=== PATIENT | female | born 1985 | race African-American/Black ===

== ENCOUNTER 2016-09-20 17:06 | Emergency (ER) ==
[2016-09-20 17:16] VITALS: BP 120/073
[2016-09-20] MEDS ORDERED: NORFLEX IM ONE (18:01)
[2016-09-20] MEDS ORDERED: TORADOL IM ONE (18:01)
--- NOTE | 2016-09-20 18:05 | PROVIDER DOCUMENTATION ---
HPI-Musculoskeletal Pain/Inj - GENERAL Chief Complaint: Neck Pain Stated Complaint: BACK PAIN Time Seen by Provider: 09/20/16 17:55 - HX OF PRESENT ILLNESS-MUSKULOSKELTAL Nature of Presenting Problem: 31 year old AAF presents with c/o left neck pain for 2-3 days, onset upon awakening. pt denies trauma, heavy lifting, twisting, turning. pt reports pain is exacerbate with ROM of neck, any movement worsens pain. pt reports she has tried OTC tylenol and naproxin without relief. Quality of Pain: reports: aching, cramping Severity in ED: mild Onset/Duration: 2 days ago, 3 days ago Timing: still present, constant, getting worse Modifying Factors: improves with: exercise, lying down, massage, movement, palpation, rest Any recent injury?: No Locality of Occurance: Home Similar Symptoms Previously?: No Recently seen or treated by another doctor?: No - BACK & NECK PAIN/INJURY Back/Neck Pain Location: reports: paraspinous muscles (left latyeral) Back/Neck Pain Radiation: denies: headache, Buttocks, Upper Legs, Lower Legs, Feet Context / Method of Injury: reports: unknown. denies: direct blow, fall, lifting, motor vehicle crash, overuse, twisted, prior injury Associated Symptoms: reports: denies symptoms. denies: loss of bladder control , loss of bowel control, fever, lower back pain, muscle spasms, numbness in legs /feet, numbness in upper ext, sensory/motor loss, tingling in legs/feet, tingling in upper ext, weakness in legs/feet, weakness in upper ext History of Chronic Neck or Back Pain?: No Review of Systems - Adult - REVIEW OF SYSTEMS - ADULT Constitutional: reports: no symptoms reported. denies: chills, fever, fatique Eyes: reports: no symptoms reported. denies: discharge, blurred vision, double vision, eye pain Ears, Nose, Mouth & Throat: reports: no symptoms reported. denies: ear discharge, ear pain, nose pain, loose teeth, throat pain, throat swelling Cardiovascular: reports: no symptoms reported. denies: chest pain, palpitations , syncope Respiratory: reports: no symptoms reported. denies: chronic cough, cough, shortness of breath, wheezing Gastrointestinal: reports: no symptoms reported. denies: abdominal pain, diarrhea, nausea, vomiting Genitourinary: reports: no symptoms reported. denies: dysuria, hematuria, urgency Musculoskeletal: reports: see HPI, muscle aches, neck pain (left lateral neck tenderness). denies: bone pain, back pain, frequent leg cramps, joint pain, joint swelling, muscle weakness Integumentary: reports: no symptoms reported. denies: hives, mole changes, nail changes Neurological: reports: no symptoms reported. denies: ataxia, dizziness/vertigo , headache/migraines, numbness, paresthesia, seizure, slurred speech Psychiatric: reports: no symptoms reported Endocrine: reports: no symptoms reported Hematologic/Lymphatic: reports: no symptoms reported Allergic/Immunologic: reports: no symptoms reported All Other Systems: Reviewed and Negative Past History - Adult - PAST MEDICAL HISTORY-ADULT Review of Records: reports: Old Records Reviewed, Nursing Assessment Review, Medications Reviewed, Social history reviewed & non-contributory. Major Childhood Illnesses: reports: denies history Cardiovascular: reports: HTN Respiratory: reports: asthma (childhood) Gastrointestinal: reports: denies history Obstetrical/Gynecological: reports: denies history Genitourinary: reports: denies history Musculoskeletal: reports: denies history Neurological: reports: denies history Endocrine/Immune: reports: denies history Other Conditions: reports: denies history - PRIOR SURGERIES/PROCEDURES Surgical/Procedure History: reports: cholecystectomy - IMMUNIZATION STATUS Childhood Immunizations: See Nurse Assessment Flu Vaccine: See Nurse Assessment - FAMILY HISTORY Family History: reviewed, not pertinent - SOCIAL HISTORY Smoking: cigarettes Provider spent 3-5 mins advising pt. on dangers of tobacco.: Discussed manners to quit use, and f/u contacts for add'l counseling. Substance Use: none presently/history of abuse Alcohol Use Frequency: never Physical Exam-Injury Related - Physical Exam-Injury Related Initial Vital Signs Reviewed: Yes General Appearance: appears well, alert, no apparent distress Eyes: pink conjunctivae Head, Ears, Nose, Mouth & Throat: normocephalic/atraumatic, moist mucous membranes, normal ENT inspection Neck: supple, normal inspection, decresed ROM, limited range of motion, muscle spasm, pain on movement, tender lateral (left lateral neck tenderness). negative: non-tender, full range of motion, Brudzinski's sign, C-spine tenderness, ecchymosis, lymphadenopathy, subcutaneous emphysema, swelling, trachial deviation, tender midline, vertebral point tenderness Respiratory: chest non-tender, lungs clear, normal breath sounds, no pleuratic chest pain, no respiratory distress, no accessory muscle use Cardiovascular: normal peripheral pulses, regular rate, rhythm, no edema, no gallop, no JVD, no murmur Peripheral Pulses: radial (R): 3+, radial (L): 3+ Abdominal Exam: normal bowel sounds, non tender, soft, no organomegaly, no pulsatile mass Female Genitalia/Pelvic Exam: deferred Rectal Exam: deferred Hemoccult Exam: deferred Lymphatic: no adenopathy Back Exam: normal inspection, no CVA tenderness, no vertebral tenderness. negative: CVA tenderness, decreased range of motion, vertebral tenderness Extremity: normal range of motion, non-tender, normal gait, normal inspection, no pedal edema, no calf tenderness, normal capillary refill, pelvis stable. negative: deformity, erythema, inflammation Integumentary: normal color, warm/dry Neurologic: grossly normal, no motor/sensory deficits Psych/Mental Status: AL, normal mood/affect, normal thought content, normal thought process, oriented x 3 - Glascow Coma Score Best Eye Response ([place]): (4) open spontaneously Best Verbal Response ([place]): (5) oriented Best Motor Response ([place]): (6) obeys commands [place] Total: 15 Progress - PLAN OF CARE/RESULTS Progress/Plan/Lab Results: Orders Category Date Time Status Ketorolac [Toradol] Med 09/20/16 18:01 Discontinued 60 mg IM NOW ONE Orphenadrine [Norflex] Med 09/20/16 18:01 Discontinued 60 mg IM NOW ONE Vital Signs - 24 hr 09/20/16 17:12 Temperature 98.9 F Pulse Rate 82 Respiratory 16 Rate Blood Pressure 120/073 O2 Sat by Pulse 100 Oximetry Departure - Departure Time of Disposition Order: 18:02 DIAGNOSIS: Muscle ache, Neck pain Disposition: HOME 01 Certified Medical Emergency: Emergent Condition: Stable Additional Instructions: ED Follow Up Instructions: You have been treated by a care provider in the Emergency Department. These instructions are being provided to you so you can have an understanding of how to care for yourself upon discharge. Upon discharge from the Emergency Department, you are responsible for making arrangements for follow-up care by a physician of your choice. Take all prescribed medications as directed. Return to the Emergency Department immediately for any new or worsening symptoms. You may call the Physician Referral phone number at [phone] to obtain a list of Physicians who are taking new patients. Prescriptions: Orphenadrine [Norflex] 100 mg PO BID #10 tablet Famotidine [Pepcid] 20 mg PO DAILY #20 tablet Ketorolac [Toradol] 10 mg PO Q6H PRN PRN #20 tablet PRN Reason: neck pain Attestation - Physician/ Mid-level Attestation Patient care was provided by Mid-level provider (LAP GRINDER/PA):: Yes Mid-level provider:: Nuria Dhaliwal (\) Mid-level documentation review:: The Mid-level provider documentation, treatment plan and medical decision making was reviewed by the physician who agrees with all treatment and medical decision making by the MLP.
== END 2016-09-20 18:41 | disposition home or self-care (01) ==
LOC: P.ED 17:06
DX: M79.1 Myalgia (principal); M54.2 Cervicalgia; M54.9 Dorsalgia, unspecified; I10 Essential (primary) hypertension; F17.210 Nicotine dependence, cigarettes, uncomplicated; Z79.899 Other long term (current) drug therapy; Z71.6 Tobacco abuse counseling
CPT/HCPCS: 96372; J1885; J2360

== ENCOUNTER 2019-04-03 10:06 | Inpatient (IN) ==
[2019-04-03] MEDS ORDERED: NICODERM PATCH TD PRN (12:49)
[2019-04-03] MEDS ORDERED: MOTRIN PO PRN (12:49)
[2019-04-03] MEDS ORDERED: TYLENOL PO PRN (12:49)
[2019-04-03] MEDS ORDERED: PHENOBARBITAL IV PRN (12:49)
[2019-04-03] MEDS ORDERED: DESYREL PO PRN (12:49)
[2019-04-03] MEDS ORDERED: TUBERSOL ID ONE (12:49)
[2019-04-03] MEDS ORDERED: D5W 1,000 ML IV PRN (12:49)
[2019-04-03] MEDS ORDERED: DULCOLAX PR PRN (12:49)
[2019-04-03] MEDS ORDERED: ZOFRAN IV PRN (12:49)
[2019-04-03] MEDS ORDERED: IMODIUM PO PRN (12:49)
[2019-04-03] MEDS ORDERED: MAALOX PLUS LIQUID PO PRN (12:49)
[2019-04-03 13:41] LABS: URINE SOURCE VOIDED
[2019-04-03 14:02] LABS: UR AMPHETAMINES QUAL NONE DETECTED (NONE DETECT); UR BARBITUATES QUAL NONE DETECTED (NONE DETECT); UR BENZODIAZEPIN QUAL NONE DETECTED (NONE DETECT); UR CANNABINOIDS QUAL NONE DETECTED (NONE DETECT); UR COCAINE QUAL NONE DETECTED (NONE DETECT); UR METHADONE QUAL NONE DETECTED (NONE DETECT); UR METHAMPHETAMINE QUAL NONE DETECTED (NONE DETECT); UR OPIATES QUAL PRESUMPTIVE POSITIVE (NONE DETECT); UR OXYCODONE QUAL PRESUMPTIVE POSITIVE (NONE DETECT); UR PCP QUAL NONE DETECTED (NONE DETECT); UR PROPOXYPHENE QUAL NONE DETECTED (NONE DETECT); UR TCA QUAL NONE DETECTED (NONE DETECT)
[2019-04-03 14:09] LABS: BILIRUBIN URINE NEGATIVE (NEGATIVE); BLOOD URINE 2+ (NEGATIVE); GLUCOSE URINE NEGATIVE (NEGATIVE); KETONE URINE TRACE mg/dL (NEGATIVE); LEUKOCYTES URINE TRACE (NEGATIVE); NITRITE URINE NEGATIVE (NEGATIVE); PH URINE 6.5; PROTEIN URINE TRACE mg/dL (NEGATIVE); SP GRAVITY URINE 1.015; UROBILINOGEN URINE 1 mg/dL
[2019-04-03 14:10] LABS: CLARITY SL. CLOUDY (CLEAR); COLOR YELLOW
[2019-04-03 14:16] LABS: URINE BACTERIA 1+ /HFP; URINE EPITHELIAL CELLS >10 /HPF (<10)
[2019-04-03 14:17] LABS: URINE CAST NONE SEEN /LPF; URINE CRYSTAL URIC ACID PRESENT /HPF; URINE WBC <10 /HPF (<10); URINE YEAST NONE SEEN /HPF
[2019-04-03 14:25] LABS: HEMATOCRIT 39.1 % (37.0-47.0); HEMOGLOBIN 13.1 g/dL (12.0-16.0); MCH 31.2 PG (27-31); MCHC 33.5 g/dL (33-37); MCV 93.1 FL (81-99); MPV 11.7 FL (7.4-10.4); RBC 4.2 XMIL (4.2-5.4); RDW 12.4 % (11.5-14.5); WBC 6.84 X1000 (4.8-10.8)
[2019-04-03 15:22] LABS: INR 0.91; PROTIME 12.7 Seconds (11.0-16.0)
[2019-04-03 15:24] LABS: AMYLASE 100 U/L (20-200); LIPASE 43 U/L (13-60)
[2019-04-03 15:42] LABS: AGAP 9; ALBUMIN 3.9 g/dL (3.5-5.0); ALKALINE PHOSPHATASE 45 U/L (32-104); BUN 10 mg/dL (8-22); CALCIUM 8.5 mg/dL (8.8-10.2); CHLORIDE 106 mmol/L (98-107); COSMO 278; CREATININE 0.4 mg/dL (0.5-0.9); ESTIMATED GFR > 60; GLUCOSE 130 mg/dL (70-104); GOT 14 U/L (10-30); GPT 12 U/L (10-36); POTASSIUM 3.6 mmol/L (3.5-5.1); SODIUM 139 mmol/L (136-145); TCO2 24 mmol/L (25-35); TOTAL BILIRUBIN < 0.15 mg/dL (0.20-1.00); TOTAL PROTEIN 6.8 g/dL (6.3-8.3)
[2019-04-03] MEDS: SUBOXONE 2 MG/0.5 MG FILM SL SCH (16:44)
[2019-04-03] MEDS: BENTYL PO PRN (18:23)
--- NOTE | 2019-04-03 20:28 | HISTORY AND PHYSICAL ---
CHIEF COMPLAINT: Nausea and vomiting. HISTORY OF PRESENT ILLNESS: The patient is a 33-year-old female who presented to [facility] [place] secondary to nausea, vomiting, abdominal pain, myalgias. Notes that she does not want to go back down the same path she has been on in the past. She has a longstanding history of use and abuse and had done well on Suboxone. She has recently been clean. She notes that the of a very close friend is what triggered this episode. SOCIAL HISTORY: Patient is single. She is unemployed. Lives at home in [place]. PAST MEDICAL HISTORY: Hypertension, chronic anxiety, depression, frequent urinary tract infections, asthma as a child. MEDICATIONS: She is on blood pressure medications. ALLERGIES: No known drug allergies. REVIEW OF SYSTEMS: CINA score is 16 secondary to nausea, vomiting, abdominal pain, myalgias, paresthesias, paroxysmal sweating, tremors, muscle pain. Notes that she is in early withdrawal and all the symptoms seem to worsen the longer she waits. Denies any fevers, chills, cough, congestion. Denies headaches, blurred vision, change in vision. Denies any shortness of breath, chest pain, palpitations. Denies any dysuria, frequency, urgency, melena, hematochezia. Consult. SUBSTANCE ABUSE HISTORY: The patient has been in drug court in the past due to legal issues from substance abuse. She has been in [facility] in 2013 and was in [facility] in [facility]. She remained sober, the last time approximately 3 months. Patient does not smoke or drink. She has a long history of opiate abuse. Notes that she had been using opiates since age 23. Currently, she is taking 15 to 20 pills a day. Started smoking at 20. Currently smokes half pack a day. PHYSICAL EXAMINATION: VITAL SIGNS: Reviewed and stable. GENERAL: Patient is awake, alert, oriented. She is in no current respiratory distress. HEENT: Normocephalic, atraumatic. MODE. NECK: Supple. No JVD. CARDIOVASCULAR: Regular rate. No murmurs chest clear nonlabored. ABDOMEN: Soft, nondistended, nontender. EXTREMITIES: Moves all extremities. NEUROLOGIC: No changes. ASSESSMENT: 1. Nausea and vomiting. 2. Abdominal pain. 3. Myalgias. 4. Paresthesias. 5. Paroxysmal sweating. 6. Opiate abuse withdrawal and stabilization. PLAN: We will admit patient to the hospital, restart her on Suboxone. Continue counseling. Further orders as needed. cc: Omar Salazar MD
[2019-04-03] MEDS: SEROQUEL PO PRN (22:02)
[2019-04-03] MEDS: ATARAX PO PRN (22:02)
[2019-04-04] MEDS: SUBOXONE 2 MG/0.5 MG FILM SL SCH ×2 (01:58→12:45)
[2019-04-04] MEDS: PROTONIX PO SCH (06:01)
[2019-04-04] MEDS: VITAMIN B-1 PO SCH (08:55)
[2019-04-04] MEDS: THERA M PLUS PO SCH (08:55)
[2019-04-04] MEDS: FOLIC ACID PO SCH (08:55)
[2019-04-04] MEDS: ATARAX PO PRN ×3 (09:03→21:36)
[2019-04-04] MEDS: BENTYL PO PRN ×2 (09:04→14:40)
[2019-04-04] MEDS: ROBAXIN PO PRN ×2 (09:04→21:36)
--- NOTE | 2019-04-04 21:30 | PROGRESS NOTE ---
DATE: 04/04/2019 SUBJECTIVE: The patient notes overall she is feeling a little bit better. Less muscle weakness, less myalgias. Denies any nausea. PHYSICAL EXAMINATION: Vital Signs: Reviewed and stable. Temperature 99 degrees, pulse 64, respiratory 18, BP 127/62. General: Patient is awake, alert. She is in no distress. HEENT: Normocephalic. Neck: Supple. Cardiovascular: Regular rate. No murmurs. Chest: Clear. Nonlabored. Abdomen: Soft, nondistended, nontender. Extremities: Moves all extremities. Neurologic: No changes. ASSESSMENT: 1. Nausea and vomiting. 2. Abdominal pain. 3. Myalgias. 4. Paresthesias. 5. Paroxysmal sweating. 6. Opiate abuse withdrawal and stabilization. PLAN: We will continue patient in the hospital. Continue Suboxone. Continue counseling. Further orders as needed. cc: Omar Salazar MD
[2019-04-04] MEDS: SEROQUEL PO PRN (21:36)
[2019-04-05] MEDS: SUBOXONE 2 MG/0.5 MG FILM SL SCH (01:22)
[2019-04-05] MEDS: PROTONIX PO SCH (06:23)
[2019-04-05] MEDS: ZOFRAN ODT PO PRN (06:23)
[2019-04-05] MEDS: VITAMIN B-1 PO SCH (08:55)
[2019-04-05] MEDS: FOLIC ACID PO SCH (08:55)
[2019-04-05] MEDS: THERA M PLUS PO SCH (08:55)
[2019-04-05] MEDS: LIBRIUM PO PRN (09:39)
[2019-04-05] MEDS: SUBOXONE 8 MG/2 MG FILM SL SCH ×2 (09:39→20:08)
[2019-04-05] MEDS: ROBAXIN PO PRN ×2 (13:02→18:36)
[2019-04-05] MEDS: SINEMET 25/100 PO PRN ×2 (13:02→23:51)
[2019-04-05] MEDS: SENOKOT PO PRN (20:07)
[2019-04-05] MEDS: ATARAX PO PRN (23:51)
[2019-04-05] MEDS: SEROQUEL PO PRN (23:51)
[2019-04-06] MEDS: PROTONIX PO SCH (06:15)
--- NOTE | 2019-04-06 06:22 | PROGRESS NOTE ---
DATE: 04/05/2019 SUBJECTIVE: The patient notes that she is still having sweating episodes, occasional nausea, and still having muscle aches. She is not sleeping well. Appetite has not returned back to normal. PHYSICAL EXAMINATION: Vital Signs: Reviewed. Temperature 97 degrees, respiratory 18, and BP 110/61. General: Patient is in no current respiratory distress. Very pleasant. HEENT: Normocephalic. Neck: Supple. Cardiovascular: Regular rate. No murmurs. Chest: Clear and nonlabored. Abdomen: Soft. Extremities: Moves all extremities. ASSESSMENT: 1. Nausea and vomiting. 2. Abdominal pain. 3. Myalgias. 4. Paresthesias. 5. Paroxysmal sweating. 6. Opiate abuse withdrawal and stabilization. PLAN: We will continue counseling. We will increase her Suboxone / and then follow. If her symptoms improve, hopefully she can be discharged home in the next 1 or 2 days. cc: Omar Salazar MD
[2019-04-06] MEDS: SUBOXONE 8 MG/2 MG FILM SL SCH ×2 (08:43→20:24)
[2019-04-06] MEDS: FOLIC ACID PO SCH (08:43)
[2019-04-06] MEDS: VITAMIN B-1 PO SCH (08:43)
[2019-04-06] MEDS: THERA M PLUS PO SCH (08:43)
[2019-04-06] MEDS: ATARAX PO PRN (08:53)
[2019-04-06] MEDS: SINEMET 25/100 PO PRN ×2 (08:53→22:09)
[2019-04-06] MEDS: ZOFRAN ODT PO PRN (08:53)
[2019-04-06] MEDS: ROBAXIN PO PRN (13:02)
[2019-04-06] MEDS: BENTYL PO PRN (16:48)
[2019-04-06] MEDS: LIBRIUM PO PRN ×2 (16:48→22:09)
[2019-04-06] MEDS: SENOKOT PO PRN (20:23)
[2019-04-06] MEDS: SEROQUEL PO PRN (22:09)
[2019-04-07] MEDS: PROTONIX PO SCH (06:23)
--- NOTE | 2019-04-07 07:44 | PROGRESS NOTE ---
DATE: 04/06/2019 SUBJECTIVE: The patient notes that she is feeling different this morning. She is very nervous about going home. She is unsure if her nausea is going to worsen. She is still having some muscle aches this morning. PHYSICAL EXAMINATION: Vital Signs: Reviewed. General: She is awake, alert, oriented. HEENT: Normocephalic. Neck: Supple. Cardiovascular: Regular rate. No murmurs. Chest: Clear, nonlabored. Abdomen: Soft, nondistended. ASSESSMENT: 1. Nausea and vomiting with abdominal pain. 2. Myalgias. 3. Paresthesias. 4. Paroxysmal sweating. 5. Opiate abuse withdrawal and stabilization. PLAN: Continue patient in the hospital Suboxone 04/14, continue counseling and will follow her symptoms. cc: Omar Salazar MD
[2019-04-07] MEDS: THERA M PLUS PO SCH (09:40)
[2019-04-07] MEDS: SUBOXONE 8 MG/2 MG FILM SL SCH (09:40)
[2019-04-07] MEDS: FOLIC ACID PO SCH (09:40)
[2019-04-07] MEDS: VITAMIN B-1 PO SCH (09:40)
[2019-04-07 09:53] VITALS: BP 115/63
--- NOTE | 2019-04-09 08:35 | DISCHARGE SUMMARY ---
ADMISSION DATE: 04/03/2019 DISCHARGE DATE: 04/07/2019 DISCHARGE DIAGNOSES: 1. Nausea and vomiting. 2. Abdominal pain. 3. Myalgias. 4. Paresthesias. 5. Paroxysmal sweating. 6. Opiate abuse withdrawal and stabilization. CONSULTATIONS: None. PROCEDURES: None. BRIEF HOSPITAL COURSE: The patient is a 33-year-old female who presented to [facility] secondary to nausea, vomiting, abdominal pain, and opiate withdrawal symptoms. Thankfully, she had an uneventful hospital course, was placed on Suboxone. Counseling was performed each day by myself. On discharge, the patient is awake, alert. She is feeling much better. DISPOSITION: Greater than 30 minutes was spent in total discharge care. The patient will be discharged home. She will follow up outpatient with treatment facility of choice. I discussed with her the importance of avoiding persons, places, and situations which she has been using and abusing in the past. cc: Omar Salazar MD
== END 2019-04-07 11:06 | disposition home or self-care (01) | DRG 897 ==
LOC: P.DIRADM 10:06 → P.MEDSURG 10:38
PROVIDERS: ADMIT Family Medicine; ATTEND Family Medicine
CPT/HCPCS: 80053; 80104; 80301; 80305; 80307; 80320; 81001; 82055; 82150; 83690; 84703; 85027; 85610; A9270; G0431; G0434; G0477; G0480; G6040; J2405